=== PATIENT | female | born 1955 | race Caucasian/White ===

== ENCOUNTER 2017-08-16 07:30 | Inpatient (IN) | payer OTHER ==
[~2017-08-16] VITALS: Ht 172.7 cm; Wt 91.7 kg
[~2017-08-16 07:30] MED LIST: PERCOCET 5/31 TABLET PO; ZOFRAN4 MG PO
[2017-08-16 08:23] LABS: BASOPHIL COUNT 0.1 K/uL (0-0.1); EOSINOPHIL (%) 0.5 % (0-5); EOSINOPHIL COUNT 0.1 K/uL (0-0.3); HEMATOCRIT 35.4 % (36.0-46.0); IMMATURE GRANULOCYTE (%) 0.4 % (0.0-0.7); IMMATURE GRANULOCYTE COUNT 0.1 K/uL; INSTRUMENT ABS NEUTROPHIL CT 14.8 K/uL; LYMPHOCYTE COUNT 1.3 K/uL (1.0-2.8); MCH 31.8 PG (29.0-34.0); MCHC 34.5 G/DL (30.0-36.0); MCV 92.2 FL (83-99); MEAN PLAT.VOLUME 11.2 uM^3 (9.5-12.4); MONOCYTE COUNT 1.2 K/uL (0-0.8); NEUTROPHIL (%) 83.9 % (45-76); NEUTROPHIL COUNT 14.8 K/uL (1.8-6.4); PLATELET COUNT 265 K/uL (156-360); RBC DIS.WIDTH-CV 12.6 % (11.8-14.6); RBC DIS.WIDTH-SD 42.6 % (39-53); RED BLOOD COUNT 3.84 M/uL (3.80-5.20); WHITE BLOOD COUNT 17.6 K/uL (4.1-10.2)
[2017-08-16 08:35] LABS: CHLORIDE 102 mEq/L (99-109); POTASSIUM 3.9 mEq/L (3.7-5.4); SODIUM 137 mEq/L (136-147)
[2017-08-16 08:37] LABS: GLUCOSE 150 mg/dL (70-99)
[2017-08-16 08:38] LABS: ANION GAP 12 MEQ/L (2-14)
[2017-08-16 08:39] LABS: TOTAL BILIRUBIN 0.3 mg/dL (0.0-1.0)
[2017-08-16 08:40] LABS: ALKALINE PHOSPHATASE 75 IU/L (3-129)
[2017-08-16 08:41] LABS: GFR ESTIMATE (CALCULATED) 44 mL/min/
[2017-08-16 08:42] LABS: UREA NITROGEN (BUN) 26 mg/dL (9-23)
[2017-08-16 09:02] LABS: TROP-I INTERPRETATION NEGATIVE; TROPONIN-I < 0.01 ng/mL (0.0-0.30)
[2017-08-16 10:05] LABS: ADD MIUA? YES; BILIRUBIN NEGATIVE; BLOOD NEGATIVE; COLOR YELLOW ((YELLOW)); GLUCOSE (STRIP) NEGATIVE; KETONES NEGATIVE; LEUKOCYTES NEGATIVE; NITRITE NEGATIVE; PROTEIN (STRIP) NEGATIVE; SPECIFIC GRAVITY 1.017 (1.000-1.030); UROBILINOGEN 0.2 MG/DL (0.2-1.0)
[2017-08-16 10:16] LABS: BACTERIA RARE /HPF; EPITHELIAL CELLS 1+ /HPF; HYALINE CASTS 0-5 /LPF; MUCUS TRACE /LPF; RED BLOOD CELLS 0-5 /HPF (0-5); UCUL ADDED? NO; WHITE BLOOD CELLS 0-5 /HPF (0-5)
[2017-08-16] MEDS ORDERED: MOBIC15 MG PO (11:26)
[2017-08-16] MEDS ORDERED: CYMBALTA60 MG PO (11:27)
[2017-08-16] MEDS ORDERED: PRILOSEC20 MG PO (11:27)
[2017-08-16] MEDS ORDERED: DIOVAN HCT 31 TABLE1 PO (11:28)
[2017-08-16] MEDS ORDERED: ULTRAM50 MG PO (11:29)
[2017-08-16] MEDS ORDERED: ELAVIL25 MG PO (11:29)
[2017-08-16 15:27] VITALS: BP 98/59
[2017-08-16 16:59] VITALS: BP 114/62
[2017-08-16 20:00] VITALS: BP 145/70
[2017-08-16 23:55] VITALS: BP 133/99
[2017-08-17] VITALS (8 sets, daily range): BP systolic 136–178; BP diastolic 64–80
[2017-08-17 07:19] LABS: HEMATOCRIT 35.4 % (36.0-46.0); MCH 30.9 PG (29.0-34.0); MCHC 33.1 G/DL (30.0-36.0); MCV 93.4 FL (83-99); MEAN PLAT.VOLUME 11.4 uM^3 (9.5-12.4); PLATELET COUNT 229 K/uL (156-360); RBC DIS.WIDTH-CV 12.9 % (11.8-14.6); RBC DIS.WIDTH-SD 43.9 % (39-53); RED BLOOD COUNT 3.79 M/uL (3.80-5.20); WHITE BLOOD COUNT 12.9 K/uL (4.1-10.2)
[2017-08-17 07:42] LABS: ANION GAP 9 MEQ/L (2-14); CHLORIDE 110 MEQ/L (99-109); POTASSIUM 3.6 MEQ/L (3.7-5.4); SAMPLE HEMOLYSIS CHECK 0; SAMPLE ICTERIC CHECK 0; SAMPLE LIPEMIA CHECK 0; UREA NITROGEN (BUN) 14 mg/dL (9-23)
[2017-08-17 07:44] LABS: GFR ESTIMATE (CALCULATED) > 59 mL/min/; GLUCOSE 106 mg/dL (70-99); SODIUM 144 MEQ/L (136-147)
[2017-08-18 03:47] VITALS: BP 148/76
[2017-08-18 07:15] LABS: BASOPHIL COUNT 0.1 K/uL (0-0.1); EOSINOPHIL (%) 0.6 % (0-5); EOSINOPHIL COUNT 0.1 K/uL (0-0.3); HEMATOCRIT 37.7 % (36.0-46.0); IMMATURE GRANULOCYTE (%) 0.2 % (0.0-0.7); INSTRUMENT ABS NEUTROPHIL CT 6.4 K/uL; LYMPHOCYTE COUNT 2.1 K/uL (1.0-2.8); MCH 30.4 PG (29.0-34.0); MCHC 32.9 G/DL (30.0-36.0); MCV 92.4 FL (83-99); MONOCYTE (%) 7.5 % (3-12); MONOCYTE COUNT 0.7 K/uL (0-0.8); NEUTROPHIL (%) 68.8 % (45-76); NEUTROPHIL COUNT 6.4 K/uL (1.8-6.4); PLATELET COUNT 264 K/uL (156-360); RBC DIS.WIDTH-CV 12.5 % (11.8-14.6); RBC DIS.WIDTH-SD 42.5 % (39-53); RED BLOOD COUNT 4.08 M/uL (3.80-5.20); WHITE BLOOD COUNT 9.3 K/uL (4.1-10.2)
[2017-08-18 07:43] LABS: ALKALINE PHOSPHATASE 61 IU/L (3-129); ANION GAP 11 MEQ/L (2-14); CHLORIDE 109 MEQ/L (99-109); GFR ESTIMATE (CALCULATED) > 59 mL/min/; GLUCOSE 108 mg/dL (70-99); SAMPLE HEMOLYSIS CHECK 1; SAMPLE ICTERIC CHECK 0; SAMPLE LIPEMIA CHECK 0; SODIUM 143 MEQ/L (136-147); TOTAL BILIRUBIN 0.4 MG/DL (0.0-1.0); UREA NITROGEN (BUN) 7 mg/dL (9-23)
[2017-08-18 08:20] VITALS: BP 140/76
[2017-08-18] MEDS ORDERED: AUGMENTIN875 MG PO (11:14)
[2017-08-18] MEDS ORDERED: AZITHROMYCIN500 M1 PO (11:14)
[2017-08-18] MEDS ORDERED: ADVAIR 100/501 DISK IH (11:16)
[2017-08-18] MEDS ORDERED: SPIRIVA RESPIMAT4 G1 IH (11:17)
== END 2017-08-18 13:40 | disposition home or self-care (01) | DRG 872 ==
LOC: EME → EDBD 07:30 → EDOF 10:44 → CANRESERV 10:48 → ENRESERV 10:48 → CANRESERV 10:49 → ENRESERV 12:33 → 2EAST 14:06
PROVIDERS: Emergency Medicine; Internal Medicine
DX: A41.9 Sepsis, unspecified organism (principal); J44.0 Chronic obstructive pulmonary disease with (acute) lower respiratory infection; J20.9 Acute bronchitis, unspecified; E87.6 Hypokalemia; I10 Essential (primary) hypertension; E78.5 Hyperlipidemia, unspecified; F32.9 Major depressive disorder, single episode, unspecified; G89.29 Other chronic pain; M54.9 Dorsalgia, unspecified; F17.200 Nicotine dependence, unspecified, uncomplicated; Z23 Encounter for immunization
CPT/HCPCS: 71010; 80048; 80053; 81003; 83605; 84484; 85025; 85027; 87040; 87502; 90686; 93005; 94640; 94640 76; 99202; 99281; 99285; J0456; J0696; J1650; J7030